=== PATIENT | female | born 1950 | race Caucasian/White ===

== ENCOUNTER 2020-05-31 08:30 | Outpatient (CLI) | payer OTHER, MEDICARE | END 2020-05-31 08:31 | disposition home or self-care (01) | LOC: CSHWCC 08:30 | PROVIDERS: ATTEND Nurse Practitioner Family | DX: T81.89XA Other complications of procedures, not elsewhere classified, initial encounter (principal); S31.000A Unspecified open wound of lower back and pelvis without penetration into retroperitoneum, initial encounter; A41.9 Sepsis, unspecified organism; L03.818 Cellulitis of other sites; M06.4 Inflammatory polyarthropathy; S01.80XA Unspecified open wound of other part of head, initial encounter; T20.26XA Burn of second degree of forehead and cheek, initial encounter | CPT/HCPCS: 97605 ==

== ENCOUNTER 2020-06-08 11:39 | Outpatient (CLI) | payer OTHER, MEDICARE | END 2020-06-08 11:40 | disposition home or self-care (01) | LOC: CSHWCC 11:39 | PROVIDERS: ATTEND Nurse Practitioner Family | DX: T81.89XD Other complications of procedures, not elsewhere classified, subsequent encounter (principal); S31.000D Unspecified open wound of lower back and pelvis without penetration into retroperitoneum, subsequent encounter; S01.80XD Unspecified open wound of other part of head, subsequent encounter; T20.26XD Burn of second degree of forehead and cheek, subsequent encounter; L03.818 Cellulitis of other sites; A41.9 Sepsis, unspecified organism; M06.4 Inflammatory polyarthropathy; R19.7 Diarrhea, unspecified | CPT/HCPCS: 99212; G0463 ==

== ENCOUNTER 2020-06-10 09:21 | Emergency (ER) | payer OTHER, MEDICARE ==
[2020-06-10] MEDS ORDERED: Morphine 4 MG/ML VIAL ONE ×2 (10:12→15:18)
[2020-06-10] MEDS ORDERED: Lorazepam 2 MG/ML VIAL ONE (10:12)
[2020-06-10] MEDS ORDERED: Ondansetron PF 4 MG/2 ML Vial ONE (10:40)
== END 2020-06-10 16:25 | disposition short-term general hospital (02) ==
LOC: CSHERS 09:21
DX: M46.24 Osteomyelitis of vertebra, thoracic region (principal); M46.44 Discitis, unspecified, thoracic region; G06.1 Intraspinal abscess and granuloma; M06.9 Rheumatoid arthritis, unspecified; E78.5 Hyperlipidemia, unspecified; I10 Essential (primary) hypertension; E66.9 Obesity, unspecified; Z79.82 Long term (current) use of aspirin; Z79.899 Other long term (current) drug therapy
CPT/HCPCS: 36415; 72157; 72158; 87040; 87077; 87149; 87186; 96365; 96375; 96376; J1956; J2060; J2270; J2405

== ENCOUNTER 2020-06-20 11:16 | Outpatient (CLI) | payer OTHER, MEDICARE | END 2020-06-20 11:17 | disposition home or self-care (01) | LOC: CSHWCC 11:16 | PROVIDERS: ATTEND Nurse Practitioner Family | DX: T81.89XD Other complications of procedures, not elsewhere classified, subsequent encounter (principal); S31.000D Unspecified open wound of lower back and pelvis without penetration into retroperitoneum, subsequent encounter; S01.80XD Unspecified open wound of other part of head, subsequent encounter; T20.26XD Burn of second degree of forehead and cheek, subsequent encounter; A41.9 Sepsis, unspecified organism; L03.818 Cellulitis of other sites; M06.4 Inflammatory polyarthropathy; R19.7 Diarrhea, unspecified | CPT/HCPCS: 99213; G0463 ==

== ENCOUNTER 2020-06-27 11:35 | Outpatient (CLI) | payer OTHER, MEDICARE | END 2020-06-27 11:36 | disposition home or self-care (01) | LOC: CSHWCC 11:35 | PROVIDERS: ATTEND Nurse Practitioner Family | DX: T81.89XD Other complications of procedures, not elsewhere classified, subsequent encounter (principal); S31.000D Unspecified open wound of lower back and pelvis without penetration into retroperitoneum, subsequent encounter; A41.9 Sepsis, unspecified organism; L03.818 Cellulitis of other sites; M06.4 Inflammatory polyarthropathy; R19.7 Diarrhea, unspecified; S01.80XD Unspecified open wound of other part of head, subsequent encounter; T20.26XD Burn of second degree of forehead and cheek, subsequent encounter | CPT/HCPCS: 99213; G0463 ==

== ENCOUNTER 2020-07-11 12:12 | Outpatient (CLI) | payer OTHER, MEDICARE | END 2020-07-11 12:13 | disposition home or self-care (01) | LOC: CSHWCC 12:12 | PROVIDERS: ATTEND Nurse Practitioner Family | DX: T81.89XD Other complications of procedures, not elsewhere classified, subsequent encounter (principal); S31.000D Unspecified open wound of lower back and pelvis without penetration into retroperitoneum, subsequent encounter; T20.26XD Burn of second degree of forehead and cheek, subsequent encounter; S01.80XD Unspecified open wound of other part of head, subsequent encounter; A41.9 Sepsis, unspecified organism; L03.818 Cellulitis of other sites; M06.4 Inflammatory polyarthropathy; R19.7 Diarrhea, unspecified | CPT/HCPCS: 99213; G0463 ==

== ENCOUNTER 2020-07-25 11:58 | Outpatient (CLI) | payer OTHER, MEDICARE | END 2020-07-25 11:59 | disposition home or self-care (01) | LOC: CSHWCC 11:58 | PROVIDERS: ATTEND Nurse Practitioner Family | DX: T20.26XD Burn of second degree of forehead and cheek, subsequent encounter (principal); T81.89XD Other complications of procedures, not elsewhere classified, subsequent encounter; S01.80XD Unspecified open wound of other part of head, subsequent encounter; S31.000D Unspecified open wound of lower back and pelvis without penetration into retroperitoneum, subsequent encounter; A41.9 Sepsis, unspecified organism; L03.818 Cellulitis of other sites; M06.4 Inflammatory polyarthropathy; R19.7 Diarrhea, unspecified | CPT/HCPCS: 99212; G0463 ==

== ENCOUNTER 2020-08-02 12:46 | Outpatient (CLI) | payer OTHER, MEDICARE | END 2020-08-02 12:47 | disposition home or self-care (01) | LOC: CSHMRI 12:46 | PROVIDERS: ATTEND Internal Medicine Infectious Disease | DX: M46.45 Discitis, unspecified, thoracolumbar region (principal) | CPT/HCPCS: 72157 ==

== ENCOUNTER 2020-11-02 09:30 | Outpatient (CLI) | payer OTHER, MEDICARE | END 2020-11-02 09:31 | disposition home or self-care (01) | LOC: CSHWCC 09:30 | PROVIDERS: ATTEND Nurse Practitioner Family | DX: T81.89XD Other complications of procedures, not elsewhere classified, subsequent encounter (principal); A41.9 Sepsis, unspecified organism; J90 Pleural effusion, not elsewhere classified; L03.818 Cellulitis of other sites; M06.4 Inflammatory polyarthropathy; M86.69 Other chronic osteomyelitis, multiple sites; R19.7 Diarrhea, unspecified; S31.000A Unspecified open wound of lower back and pelvis without penetration into retroperitoneum, initial encounter; T20.2 Burn of second degree of head, face, and neck | CPT/HCPCS: 97607; 99213; G0463 ==

== ENCOUNTER 2020-11-09 09:54 | Outpatient (CLI) | payer OTHER, MEDICARE | END 2020-11-09 09:55 | disposition home or self-care (01) | LOC: CSHWCC 09:54 | PROVIDERS: ATTEND Nurse Practitioner Family | DX: T20.26XD Burn of second degree of forehead and cheek, subsequent encounter (principal); S31.000D Unspecified open wound of lower back and pelvis without penetration into retroperitoneum, subsequent encounter; A41.9 Sepsis, unspecified organism; J90 Pleural effusion, not elsewhere classified; L03.818 Cellulitis of other sites; M06.4 Inflammatory polyarthropathy; M86.69 Other chronic osteomyelitis, multiple sites; R19.7 Diarrhea, unspecified | CPT/HCPCS: 97607 ==

== ENCOUNTER 2021-01-19 09:22 | Outpatient (CLI) | payer MEDICARE | END 2021-01-19 09:23 | disposition home or self-care (01) | LOC: CSHWCC 09:22 | PROVIDERS: ATTEND Nurse Practitioner Family | DX: T20.26XD Burn of second degree of forehead and cheek, subsequent encounter (principal); S31.000D Unspecified open wound of lower back and pelvis without penetration into retroperitoneum, subsequent encounter; L03.818 Cellulitis of other sites; A41.9 Sepsis, unspecified organism; J90 Pleural effusion, not elsewhere classified; M06.4 Inflammatory polyarthropathy; M86.69 Other chronic osteomyelitis, multiple sites; R19.7 Diarrhea, unspecified ==

== ENCOUNTER 2021-02-02 10:17 | Outpatient (CLI) | payer MEDICARE | END 2021-02-02 10:18 | disposition home or self-care (01) | LOC: CSHCT 10:17 | PROVIDERS: ATTEND Neurological Surgery | DX: S22.009A Unspecified fracture of unspecified thoracic vertebra, initial encounter for closed fracture (principal); S32.009A Unspecified fracture of unspecified lumbar vertebra, initial encounter for closed fracture; M45.4 Ankylosing spondylitis of thoracic region; E83.52 Hypercalcemia | CPT/HCPCS: 36415; 72128; 80053; 82164; 82306; 83970; 84443; 85025; 85652; 86140 ==

== ENCOUNTER 2021-02-13 09:16 | Outpatient (CLI) | payer MEDICARE, OTHER | END 2021-02-13 09:17 | disposition home or self-care (01) | LOC: CSHWCC 09:16 | PROVIDERS: ATTEND Nurse Practitioner Family | DX: T20.26XD Burn of second degree of forehead and cheek, subsequent encounter (principal); S31.000D Unspecified open wound of lower back and pelvis without penetration into retroperitoneum, subsequent encounter; M06.4 Inflammatory polyarthropathy; M86.69 Other chronic osteomyelitis, multiple sites; R19.7 Diarrhea, unspecified; L03.818 Cellulitis of other sites; A41.9 Sepsis, unspecified organism; J90 Pleural effusion, not elsewhere classified | CPT/HCPCS: 99212; G0463 ==

== ENCOUNTER 2021-02-14 10:19 | Outpatient (CLI) | payer MEDICARE | END 2021-02-14 10:20 | disposition home or self-care (01) | LOC: CSHMAMMO 10:19 | PROVIDERS: ATTEND Internal Medicine Rheumatology | DX: M81.0 Age-related osteoporosis without current pathological fracture (principal); M85.89 Other specified disorders of bone density and structure, multiple sites | CPT/HCPCS: 77080 ==

== ENCOUNTER 2021-03-22 10:03 | Outpatient (CLI) | payer MEDICARE, OTHER | END 2021-03-22 10:04 | disposition home or self-care (01) | LOC: CSHWCC 10:03 | PROVIDERS: ATTEND Nurse Practitioner Family | DX: S31.000A Unspecified open wound of lower back and pelvis without penetration into retroperitoneum, initial encounter (principal); A41.9 Sepsis, unspecified organism; J90 Pleural effusion, not elsewhere classified; L03.818 Cellulitis of other sites; M06.4 Inflammatory polyarthropathy; M86.69 Other chronic osteomyelitis, multiple sites; R19.7 Diarrhea, unspecified; T20.2 Burn of second degree of head, face, and neck ==

== ENCOUNTER 2021-10-24 10:28 | Outpatient (CLI) | payer MEDICARE, OTHER | END 2021-10-24 10:29 | disposition home or self-care (01) | LOC: CSHMAMMO 10:28 | PROVIDERS: ATTEND Physician Assistant | DX: Z12.31 Encounter for screening mammogram for malignant neoplasm of breast (principal) | CPT/HCPCS: 77063; 77067 ==

== ENCOUNTER 2023-01-31 14:03 | Outpatient (CLI) | payer MEDICARE, OTHER | END 2023-01-31 14:04 | disposition home or self-care (01) | LOC: CSHMAMMO 14:03 | PROVIDERS: ATTEND Internal Medicine Rheumatology | DX: M81.0 Age-related osteoporosis without current pathological fracture (principal); M85.89 Other specified disorders of bone density and structure, multiple sites | CPT/HCPCS: 77080 ==

== ENCOUNTER → 2023-12-10 | Day surgery (SDC) | payer MEDICARE, OTHER ==
[~2023-12-10] MED LIST: Adenosine 6 mg (2 mL) VIAL ONE; Heparin 10,000 UNITS/ 10 ML VIAL ONE; Iopamidol 300 61% 100 ML VIAL FS ONE; Lidocaine 1% (PF) 30 ML VIAL ONE; Metoprolol Tartrate 5 MG (5 mL) VIAL IVP SCH; Metoprolol Tartrate 5 MG (5 mL) VIAL ONE; Midazolam HCl 2 mg/2 ml Vial ONE; Nitroglycerin 50 MG/250 ML BOT 250 ML ONE; TICAGRELOR 90 MG TABLET ONE; Verapamil 5 MG/2 ML VIAL ONE; fentaNYL 50 mcg/mL 1 mL Vial ONE
[2023-12-10 08:03] VITALS: BP 137/60; TEMP 97.7; BMI 39.3
[2023-12-10 08:13] LABS: #Basophils 0.03 10x3/uL (0.0-0.2); #Eosinphils 0.12 10x3/uL (0.0-0.5); #Monocytes 0.63 10x3/uL (0.0-1.1); #Neutrophils 4.76 10x3/uL (1.5-8.4); %Basophils 0.4 % (0.0-2.0); %Eosinophils 1.7 % (0.0-6.0); %Lymphocytes 19.5 % (18.0-47.0); %Monocytes 9.1 % (0.0-10.0); %Neutrophils 68.9 % (40.0-75.0); Hematocrit 39.7 % (34.9-44.5); Mean Corpuscular HGB CONC 32.7 g/dL (32.0-36.0); Mean Corpuscular Hemoglobin 31.8 pg (27.0-33.0); Mean Corpuscular Volume 97.1 fL (81.6-98.3); Mean Platelet Volume 11.3 fL (7.4-10.4); Platelet Count 247 10x3/uL (150-450); RBC Distribution Width 14.5 % (11.5-14.5); Red Blood Cell (RBC) Count 4.09 10x6/uL (3.90-5.03); White Blood Cell (WBC) Count 6.9 10x3/uL (3.5-10.5)
[2023-12-10 08:16] LABS: INR-International Normal Ratio 1.1
[2023-12-10 08:25] LABS: Anion Gap 15 mmol/L (10-20); BUN (Urea Nitrogen) 18 mg/dL (9.8-20.1); Calc. Creatinine Clearance 98 mL/min (70-130); Carbon Dioxide 20 mmol/L (23-31); Chloride 110 mmol/L (98-107); Estimated GFR 78; Glucose 105 mg/dL (83-110); Potassium 4.3 mmol/L (3.5-5.1); Sodium 141 mmol/L (136-145)
== END ==
LOC: CSHSDC 06:29
PROVIDERS: ATTEND Specialist
PROC: 02703ZZ Dilation of Coronary Artery, One Artery, Percutaneous Approach (ICD-10-PCS; principal; 2023-12-10)
PROC: 4A023N7 Measurement of Cardiac Sampling and Pressure, Left Heart, Percutaneous Approach (ICD-10-PCS; 2023-12-10)
PROC: B215YZZ Fluoroscopy of Left Heart using Other Contrast (ICD-10-PCS; 2023-12-10)
DX: I25.118 Atherosclerotic heart disease of native coronary artery with other forms of angina pectoris (principal); R94.39 Abnormal result of other cardiovascular function study; I11.0 Hypertensive heart disease with heart failure; I50.9 Heart failure, unspecified; I50.30 Unspecified diastolic (congestive) heart failure; M06.9 Rheumatoid arthritis, unspecified; E66.9 Obesity, unspecified; I70.1 Atherosclerosis of renal artery; I42.0 Dilated cardiomyopathy; I35.1 Nonrheumatic aortic (valve) insufficiency; Z88.0 Allergy status to penicillin; Z79.899 Other long term (current) drug therapy; Z79.82 Long term (current) use of aspirin; Z90.49 Acquired absence of other specified parts of digestive tract; Z98.890 Other specified postprocedural states; Z86.718 Personal history of other venous thrombosis and embolism; Z88.2 Allergy status to sulfonamides
CPT/HCPCS: 71045; 80048; 85025; 85347 ×2; 85610; 85730; 93005; 93458; C1725; C1769; C1874 ×2; C1887; C1894; C9607; J0153; J1644; J2001; J2250; J3010; 92943; 93010; 99152; 99153